=== PATIENT | female | born 1935 | race Asian ===

== ENCOUNTER 2018-06-15 19:11 | Emergency (ER) | payer MEDICARE ==
[~2018-06-15] VITALS: Ht 152.4 cm; Wt 45.5 kg
[~2018-06-15 19:11] MED LIST: AMLO5TAB4 PO; CO Q10 PO; FISH OIL PO; LISI-170 PO; MAGNESIUM PO; MIRA50TA PO; MULT-516 PO; ZOLP10TA5 PO
[2018-06-15] MEDS ORDERED: OMNIPAQUE 350 MG/ML, 100ML BOTTLE ONE (20:00)
[2018-06-15] MEDS ORDERED: SODIUM CHLORIDE 0.9% 1,000ML IVBOLUS ONE (20:00)
[2018-06-15] MEDS ORDERED: LEVO50TA PO (20:14)
[2018-06-15 20:15] LABS: ALANINE AMINOTRANSFERASE 28 U/L (12-78); ALBUMIN 2.8 g/dL (3.4-5.0); CALCIUM 7.8 mg/dL (8.5-10.1); CREATININE 0.52 mg/dL (0.55-1.02)
[2018-06-15 20:17] LABS: ALKALINE PHOSPHATASE 82 U/L (45-117); BILIRUBIN,TOTAL 0.3 mg/dL (0.2-1.0); TOTAL PROTEIN 6.7 g/dL (6.4-8.2)
[2018-06-15 20:21] LABS: RED BLOOD COUNT 3.55 x10^6/uL (3.82-5.3); RED CELL DISTRIBUTION WIDTH 15.6 % (9.6-15.2)
[2018-06-15 20:23] LABS: ANION GAP 10 mmol/L (5-15); CHLORIDE 86 mmol/L (98-107)
[2018-06-15 20:26] LABS: MEAN CORPUSCULAR HEMOGLOBIN 32.8 pg (27.0-34.8); MEAN CORPUSCULAR HGB CONC 34.6 g/dL (32.4-35.8)
[2018-06-15 20:27] LABS: MD YES; MEAN PLATELET VOLUME 7.3 fL (7.4-10.4); PLATELET COUNT 116 x10^3/uL (130-400)
[2018-06-15] MEDS ORDERED: CEFTRIAXONE PMX 1GM/50ML 50 ML ONE (20:33)
[2018-06-15 20:34] LABS: MICROSCOPIC INDICATED
[2018-06-15 20:51] LABS: BAND#(MANUAL) 1.19 x10^3/uL; BANDS%(MANUAL) 1 % (0-7); LYMPH#(MANUAL) 5.93 x10^3/uL (1-3.4); LYMPHS% (MANUAL) 5 % (22-44); MONOS% (MANUAL) 7 % (2-9); NRBC % (MANUAL) 1 % (0-1); SEGS% (MANUAL) 7 % (42-75)
[2018-06-15 20:53] LABS: <PLATELET ESTIMATE> DECREASED; <PLT MORPHOLOGY> NORMAL PLT MORPH; ANISOCYTOSIS 1+; POLYCHROMASIA 1+
[2018-06-15 20:57] LABS: CULTURE INDICATED? YES
[2018-06-15 21:00] LABS: OTHER CELLS % (MANUAL) 80 % (0-0)
[2018-06-15] MEDS ORDERED: CEFTRIAXONE 1,000 MG in SODIUM CHLORIDE 0.9% 50 ML IVPB ONE (21:00)
[2018-06-15] MEDS ORDERED: CEFTRIAXONE 1,000 MG IV ONE (21:00)
[2018-06-15 21:22] LABS: CHLORIDE,URINE RANDOM 42 mmol/L; POTASSIUM,URINE RANDOM 51 mmol/L; SODIUM,URINE RANDOM 18 mmol/L
[2018-06-15 21:55] LABS: INTERNATIONAL NORMALIZED RATIO 1.2 (0.93-1.1); PROTHROMBIN TIME 12.3 Seconds (9.6-11.5)
[2018-06-15] MEDS ORDERED: HYDROXYUREA 500 MG CAPSULE PO SCH (23:00)
[2018-06-15] MEDS ORDERED: ALLOPURINOL 300 MG TABLET PO SCH (23:00)
[2018-06-16 00:06] VITALS: BP 122/65
== END 2018-06-16 22:33 | disposition short-term general hospital (02) ==
LOC: ED 22:32 → EDIP 22:36 → UNDOADMIN 22:36 → UNDODISIN 06-16 00:06 → ED 06-16 22:33
DX: D72.829 Elevated white blood cell count, unspecified (principal); E87.1 Hypo-osmolality and hyponatremia; R14.0 Abdominal distension (gaseous); R41.82 Altered mental status, unspecified
CPT/HCPCS: 36415; 70450; 71045; 74177; 80053; 81001; 82140; 82436; 83605; 83615; 83690; 84133; 84300; 84550; 85025; 85384; 85610; 85730; 87040; 87086; 93005; 96361; 96365; 99291; J0696; J7030; Q9967

== ENCOUNTER → 2018-09-18 | Outpatient (CLI) | payer MEDICARE ==
[~2018-09-18] MED LIST changes: +LEVO50TA PO
== END | disposition home or self-care (01) ==
LOC: CFH 12:51
PROVIDERS: ATTEND Family Medicine
DX: E04.1 Nontoxic single thyroid nodule (principal); E03.9 Hypothyroidism, unspecified
CPT/HCPCS: 76536